=== PATIENT | male | born 1985 | race Caucasian/White ===

== ENCOUNTER 2016-06-24 02:49 | Day surgery (SDC) | payer OTHER ==
[2016-06-24] MEDS ORDERED: ONDANSETRON 4 MG/2 ML VIAL IVPUSH ONE (03:12)
[2016-06-24] MEDS ORDERED: SODIUM CHLORIDE 1,000 ML IV STA ×2 (03:12→04:25)
[2016-06-24] MEDS ORDERED: morphine CARPU-JECT 4 MG/1 ML DISP.SYRIN IVPUSH ONE (03:12)
--- NOTE | 2016-06-24 03:18 | PDOC ---
History of Present Illness - General Stated Complaint: STOMACH PAIN Time Seen by Provider: 06/24/16 02:52 History Source: Patient Exam Limitations: No Limitations - History of Present Illness Travel History: No Initial Comments: 06/24/16 03:14 30yo male patient presents to ED c/o abd pain. Patient state symptoms began around 1 am this morning, woke him up out of his sleep. Patient reports vomiting >3 times. Denies diarrhea and fever. He stated he was seen at [facility] this past Apr, and was told he needed his gall bladder removed but he never followed up. Patient denies any other complaints at this time. Timing/Duration: reports: getting worse Quality: reports: severe Abdominal Pain Onset Location: reports: epigastric Pain Radiation: reports: RUQ Activities at Onset: reports: sleep Treatment Prior to Arrive: worse with: analgesics, antacids, cold pack, heat, laxative, enema, other Aggravating Factors: improves with: None Alleviating Factors: improves with: None Past History - Travel Traveled outside of the country in the last 30 days: No Close contact w/someone who was outside of country & ill: No Abd/GI Specific PMHX - Complaint Specific PMHX Colitis: No Diverticulitis: No Gall Bladder Disease: Yes GERD: No Hepatitis: No Irritable Bowel Synd (IBS): No Pancreatitis: No GI Ulcer Disease: No Review of Systems - Review of Systems Able to Perform ROS?: Yes Is the patient limited Bolivian proficient: No Constitutional: No: Chills, Fever Respiratory: No: Cough, Shortness of Breath, Stridor, Wheezing Cardiac (ROS): No: Chest Pain, Lightheadedness, Palpitations, Syncope, Chest Tightness ABD/GI: Yes: Nausea, Vomiting, Other (Abdominal Pain). No: Diarrhea : No: Dysuria, Frequency, Hematuria, Pain Musculoskeletal: No: Back Pain Integumentary: No: Bruising, Erythema, Rash Neurological: No: Headache, Numbness, Seizure, Tremors, Weakness All Other Systems: Reviewed and Negative *Physical Exam - Physical Exam General Appearance: Yes: Nourished, Appropriately Dressed, Apparent Distress, Moderate Distress. No: Mild Distress, Severe Distress HEENT: positive: EOMI, DANETTE, Normal ENT Inspection, Normal Voice, Symmetrical, TMs Normal, Pharynx Normal. negative: Scleral Icterus (R), Scleral Icterus (L) Neck: positive: Trachea midline, Normal Thyroid, Supple. negative: Tender, Rigid Respiratory/Chest: positive: Lungs Clear, Normal Breath Sounds. negative: Respiratory Distress, Accessory Muscle Use, Labored Respiration, Rapid RR, Stridor, Wheezing Cardiovascular: positive: Regular Rhythm, Regular Rate. negative: Edema, JVD, Murmur Gastrointestinal/Abdominal: positive: Tender (Epigastric and RUQ Pain), Soft, Decreased BS, Guarding, Rebound, Tenderness. negative: Distended Musculoskeletal: positive: Normal Inspection. negative: CVA Tenderness Extremity: positive: Normal Capillary Refill, Normal Inspection, Normal Range of Motion Integumentary: positive: Normal Color, Dry, Warm. negative: Erythema, Jaundice , Cold, Clammy, Diaphoresis, Rash, Swelling Neurologic: positive: commissioner of officials II-XII NML intact, Fully Oriented, Alert, Normal Mood/ Affect, Normal Response, Motor Strength 5/5
[2016-06-24 03:45] LABS: BASOPHIL 0.7 % (0-2.0); EOSINOPHIL 1.8 % (0-4.5); MCH 30.1 pg (25.7-33.7); MCHC 34.6 g/dl (32.0-35.9); MEAN CELL VOLUME 87.1 fl (80-96); MEAN PLT VOLUME 9.1 fl (7.5-11.1); NEUTROPHILS 54.4 % (42.8-82.8); PLATELET COUNT 272 K/MM3 (134-434); RDW 12.3 % (11.9-15.9); WHITE BLOOD COUNT 9.8 K/mm3 (4.0-10.0)
[2016-06-24] MEDS ORDERED: HYDROmorphone HCL CARPU-JECT 1 MG/1 ML DISP.SYRIN IVPUSH ONE (03:58)
[2016-06-24] MEDS ORDERED: HYDROmorphone HCL CARPU-JECT 1 MG/1 ML DISP.SYRIN ONE (04:04)
[2016-06-24] MEDS ORDERED: PANTOPRAZOLE SODIUM 40 MG in SODIUM CHLORIDE 100 ML IVPB ONE (04:04)
[2016-06-24] MEDS ORDERED: PANTOPRAZOLE SODIUM 100 ML IVPB ONE (04:13)
[2016-06-24 05:37] LABS: ALBUMIN 4.1 g/dl (3.4-5.0); AMYLASE 78 U/L (25-115); ANION GAP 10 (8-16); CO2 31 mmol/L (21-32); GLUCOSE,RANDOM 120 mg/dL (74-106)
[2016-06-24 05:41] LABS: ALK PHOS 59 U/L (45-117); BILIRUBIN,TOTAL 0.4 mg/dL (0.2-1.0); CREATININE 1.1 mg/dL (0.7-1.3); SGOT/AST 17 U/L (15-37); SGPT/ALT 41 U/L (12-78); TOT PROT 7.5 g/dl (6.4-8.2)
[2016-06-24 05:43] LABS: BILIRUBIN,DIRECT < 0.1 mg/dL (0.0-0.2)
[2016-06-24 06:06] LABS: URINE APPEARANCE CLEAR; URINE BILIRUBIN NEGATIVE (NEGATIVE); URINE COLOR STRAW; URINE GLUCOSE (UA) NEGATIVE (NEGATIVE); URINE KETONE NEGATIVE (NEGATIVE); URINE LEUK ESTERASE NEGATIVE (NEGATIVE); URINE NITRITE NEGATIVE (NEGATIVE); URINE PROTEIN NEGATIVE (NEGATIVE); URINE UROBILINOGEN NEGATIVE E.U./dl (0.2-1.0)
--- NOTE | 2016-06-24 06:13 | PDOC ---
[id number] 100 06/24/16 03:21 06/24/16 03:21 06/24/16 03:21 06/24/16 03:21 06/24/16 03:21 ED Treatment Course - LABORATORY CBC & Chemistry Diagram: 06/25/16 06:00 06/25/16 06:00 - ADDITIONAL ORDERS Additional order review: Laboratory Results 06/24/16 03:16 Sodium 141 Potassium 3.9 Chloride 100 Carbon Dioxide 31 Anion Gap 10 BUN 20 H Creatinine 1.1 Random Glucose 120 H Calcium 9.0 Total Bilirubin 0.4 Direct Bilirubin < 0.1 AST 17 ALT 41 Alkaline Phosphatase 59 Total Protein 7.5 Albumin 4.1 Total Amylase 78 Lipase 414 H 06/24/16 03:16 RBC 5.08 MCV 87.1 MCHC 34.6 RDW 12.3 MPV 9.1 Neutrophils % 54.4 Lymphocytes % 35.6 Monocytes % 7.5 Eosinophils % 1.8 Basophils % 0.7 - Medications Given in the ED: ED Medications Discontinued Medications Generic Name Dose Route Start Last Admin Trade Name Isaíasq PRN Reason Stop Dose Admin Hydromorphone HCl 1 mg 06/24/16 03:58 06/24/16 04:12 Dilaudid Injection - IVPUSH 06/24/16 03:59 1 mg ONCE ONE Administration Sodium Chloride 1,000 mls @ 1,000 mls/hr 06/24/16 03:12 06/24/16 03:26 Normal Saline - IV 06/24/16 04:11 1,000 mls/hr ASDIR STA Administration Pantoprazole Sodium 40 mg/ 100 mls @ 200 mls/hr 06/24/16 04:04 06/24/16 04:16 Sodium Chloride IVPB 06/24/16 04:33 200 mls/hr ONCE ONE Administration Sodium Chloride 1,000 mls @ 1,000 mls/hr 06/24/16 04:25 06/24/16 04:32 Normal Saline - IV 06/24/16 05:24 1,000 mls/hr ASDIR STA Administration Morphine Sulfate 4 mg 06/24/16 03:12 06/24/16 03:26 Morphine Injection - IVPUSH 06/24/16 03:13 4 mg ONCE ONE Administration Ondansetron HCl 4 mg 06/24/16 03:12 06/24/16 03:26 Zofran Injection IVPUSH 06/24/16 03:13 4 mg ONCE ONE Administration Medical Decision Making - Medical Decision Making 06/24/16 06:13 agree with care from FLOORING SALES MANAGER Rajan *DC/Admit/Observation/Transfer Diagnosis at time of Disposition: Epigastric abdominal pain, Cholecystitis - Discharge Dispostion Disposition: HOME Condition at time of disposition: Stable - Prescriptions
[2016-06-24 06:15] LABS: URINE BLOOD 1+ (NEGATIVE)
[2016-06-24 06:29] LABS: URINE MUCUS RARE; URINE RBC 2 /hpf (0-3)
--- NOTE | 2016-06-24 07:18 | PDOC ---
ED Treatment Course - LABORATORY CBC & Chemistry Diagram: 06/24/16 03:16 06/24/16 03:16 - ADDITIONAL ORDERS Additional order review: Laboratory Results 06/24/16 06/24/16 05:00 03:16 Sodium 141 Potassium 3.9 Chloride 100 Carbon Dioxide 31 Anion Gap 10 BUN 20 H Creatinine 1.1 Random Glucose 120 H Calcium 9.0 Total Bilirubin 0.4 Direct Bilirubin < 0.1 AST 17 ALT 41 Alkaline Phosphatase 59 Total Protein 7.5 Albumin 4.1 Total Amylase 78 Lipase 414 H Urine Color Straw Urine Appearance Clear Urine pH 6.0 Ur Specific [place] 1.014 Urine Protein Negative Urine Glucose (UA) Negative Urine Ketones Negative Urine Blood 1+ H Urine Nitrite Negative Urine Bilirubin Negative Urine Urobilinogen Negative Ur Leukocyte Esterase Negative Urine RBC 2 Urine WBC None Urine Mucus Rare 06/24/16 03:16 RBC 5.08 MCV 87.1 MCHC 34.6 RDW 12.3 MPV 9.1 Neutrophils % 54.4 Lymphocytes % 35.6 Monocytes % 7.5 Eosinophils % 1.8 Basophils % 0.7 - Medications Given in the ED: ED Medications Discontinued Medications Generic Name Dose Route Start Last Admin Trade Name Freq PRN Reason Stop Dose Admin Hydromorphone HCl 1 mg 06/24/16 03:58 06/24/16 04:12 Dilaudid Injection - IVPUSH 06/24/16 03:59 1 mg ONCE ONE Administration Sodium Chloride 1,000 mls @ 1,000 mls/hr 06/24/16 03:12 06/24/16 03:26 Normal Saline - IV 06/24/16 04:11 1,000 mls/hr ASDIR STA Administration Pantoprazole Sodium 40 mg/ 100 mls @ 200 mls/hr 06/24/16 04:04 06/24/16 04:16 Sodium Chloride IVPB 06/24/16 04:33 200 mls/hr ONCE ONE Administration Sodium Chloride 1,000 mls @ 1,000 mls/hr 06/24/16 04:25 06/24/16 04:32 Normal Saline - IV 06/24/16 05:24 1,000 mls/hr ASDIR STA Administration Morphine Sulfate 4 mg 06/24/16 03:12 06/24/16 03:26 Morphine Injection - IVPUSH 06/24/16 03:13 4 mg ONCE ONE Administration Ondansetron HCl 4 mg 06/24/16 03:12 06/24/16 03:26 Zofran Injection IVPUSH 06/24/16 03:13 4 mg ONCE ONE Administration Progress Note - Progress Note Progress Note: I have received report from JUDITH Tolentino regarding this patient. Pt's initial chief complaint: epigastric pain with vomiting Pt's work up completed prior to sign out: labs, EKG Pt treatment given from prior staff: IV zofran, dilaudid, morphine, protonix, fluids Pt plan to be completed: Awaiting gallbladder ultrasound Dispo: Pending Medical Decision Making - Medical Decision Making A/P: 30 y/o afebrile male with hx of gallstones who woke up in the middle of the night with epigastric abdominal pain. Pt was initially assessed by JUDITH Tolentino. Labs unremarkable except for elevated lipase. Patient's pain is now improved. Awaiting gallbladder ultrasound. Gallbladder Ultrasound IMPRESSION: Cholelithiasis. Findings suggest cholecystitis. Spoke with Dr. Mcclelland and he will admit to med/surg Ordered IV ceftriaxone and flagyl. *DC/Admit/Observation/Transfer Diagnosis at time of Disposition: Epigastric abdominal pain, Cholecystitis - Discharge Dispostion Admit: Yes - Referrals Referrals: Avery Pope [Primary Care Provider] -
[2016-06-24] MEDS ORDERED: CEFTRIAXONE 1,000 MG in DEXTROSE 5%-WATER - 50 ML IVPB ONE (09:46)
[2016-06-24] MEDS ORDERED: METRONIDAZOLE 500 MG PREMIXED 100 ML IVPB ONE ×2 (09:46→10:01)
--- NOTE | 2016-06-24 09:57 | EKG ---
Test Reason : Blood Pressure : / mmHG Vent. Rate : 063 BPM Atrial Rate : 063 BPM P-R Int : 166 ms QRS Dur : 106 ms QT Int : 390 ms P-R-T Axes : 054 074 063 degrees QTc Int : 399 ms NORMAL SINUS RHYTHM NO PREVIOUS ECGS AVAILABLE Confirmed by ADDISON DOS SANTOS MD ([id number]) on 06/24/2016 9:56:27 AM Referred By: Confirmed By:ADDISON DOS SANTOS MD
[2016-06-24] MEDS ORDERED: CEFTRIAXONE 50 ML ONE (10:00)
[2016-06-24] MEDS ORDERED: ACETAMINOPHEN 325 MG TABLET (FP) PO PRN ×2 (10:25→17:10)
[2016-06-24] MEDS ORDERED: morphine CARPU-JECT 2 MG/1 ML DISP.SYRIN IVPUSH PRN ×2 (10:25→17:10)
[2016-06-24] MEDS ORDERED: ONDANSETRON 4 MG/2 ML VIAL IVPB PRN ×2 (10:25→17:30)
[2016-06-24] MEDS ORDERED: LEVOTHYROXINE NA 150 MCG TABLET PO SCH (10:30)
[2016-06-24] MEDS ORDERED: SODIUM CHLORIDE 1,000 ML IV SCH (10:30)
--- NOTE | 2016-06-24 10:32 | HP ---
PCP: Avery Pope CHIEF COMPLAINT: Abdominal pain HISTORY OF PRESENT ILLNESS: This is a 30-year-old man who presented to the ER complaining of abdominal pain. The pain was located in the epigastrium and awoke him from sleep at 1 am. He vomited partially digested food. He had eaten fried food around 9 pm last night. He denies fever, chills, hematemesis, heartburn, weight loss. He says he had a similar episode in March or April which resolved on its own. He subsequently had an abdominal US which showed gallstones. He was advised to avoid fried food. PAST MEDICAL HISTORY Cholelithiasis Hypothyroidism PAST SURGICAL HISTORY Denies Allergies No Known Allergies Allergy (Verified 06/24/16 03:24) HOME MEDICATIONS 3 Medication Instructions Recorded Levothyroxine [Synthroid -] 150 mcg PO DAILY 06/24/16 Social History: Smoking: Never smoked Alcohol: Denies Drugs: Denies Recent Travel: No Family History: Unremarkable REVIEW OF SYSTEMS CONSTITUTIONAL: Absent: fever, chills, diaphoresis, generalized weakness, malaise, loss of appetite, weight change HEENT: Absent: rhinorrhea, nasal congestion, throat pain, throat swelling, difficulty swallowing, mouth swelling, ear pain, eye pain, visual changes CARDIOVASCULAR: Absent: chest pain, syncope, palpitations, lightheadedness, peripheral edema RESPIRATORY: Absent: cough, shortness of breath, dyspnea with exertion, orthopnea, wheezing, stridor, hemoptysis GASTROINTESTINAL: Present: abdominal pain, nausea, vomiting. Absent: abdominal distension, diarrhea, constipation, melena, hematochezia GENITOURINARY: Absent: dysuria, frequency, urgency, hesitancy, hematuria, flank pain MUSCULOSKELETAL: Absent: myalgia, arthralgia, joint swelling, back pain, neck pain SKIN: Absent: rash, itching, pallor HEMATOLOGIC/IMMUNOLOGIC: Absent: easy bleeding, easy bruising, lymphadenopathy, frequent infections ENDOCRINE: Absent: unexplained weight gain, unexplained weight loss, heat intolerance, cold intolerance NEUROLOGIC: Absent: headache, focal weakness, paresthesias, dizziness, unsteady gait, seizure, mental status changes, bladder or bowel incontinence PSYCHIATRIC: Absent: anxiety, depression, suicidal or homicidal ideation, hallucinations. PHYSICAL EXAMINATION Vital Signs Period Temp Pulse Resp BP Sys/Arellano Pulse Ox Last 24 Hr 98.7 F 75 15 134/75 100 GENERAL: Awake, alert, and fully oriented, in no acute distress. HEAD: Normal with no signs of trauma. EYES: Pupils equal, round and reactive to light, extraocular movements intact, sclerae anicteric, conjunctivae clear. EARS, NOSE, THROAT: Ears normal, nares patent, oropharynx clear without exudates. Moist mucous membranes. NECK: Normal range of motion, supple without lymphadenopathy, JVD, or masses. LUNGS: Breath sounds equal, clear to auscultation bilaterally. No wheezes, and no crackles. No accessory muscle use. HEART: Regular rate and rhythm, normal S1 and S2 without murmur, rub or gallop. ABDOMEN: Soft, (+) RUQ tenderness, not distended, normoactive bowel sounds, no guarding, no rebound, no masses. No hepatomegaly or splenomegaly. MUSCULOSKELETAL: Normal range of motion at all joints. No bony deformities or tenderness. No CVA tenderness. UPPER EXTREMITIES: 2+ pulses, warm, well-perfused. No cyanosis. No clubbing. No peripheral edema. LOWER EXTREMITIES: 2+ pulses, warm, well-perfused. No calf tenderness. No peripheral edema. NEUROLOGICAL: Cranial nerves II-XII intact. Normal speech. Gait not observed. PSYCHIATRIC: Cooperative. Good eye contact. Appropriate mood and affect. SKIN: Warm, dry, normal turgor, no rashes or lesions noted, normal capillary refill. Laboratory Tests 06/24/16 06/24/16 06/24/16 03:16 03:16 05:00 WBC 9.8 RBC 5.08 Hgb 15.3 Hct 44.2 MCV 87.1 MCHC 34.6 RDW 12.3 Plt Count 272 MPV 9.1 Neutrophils % 54.4 Lymphocytes % 35.6 Monocytes % 7.5 Eosinophils % 1.8 Basophils % 0.7 Sodium 141 Potassium 3.9 Chloride 100 Carbon Dioxide 31 Anion Gap 10 BUN 20 H Creatinine 1.1 Random Glucose 120 H Calcium 9.0 Total Bilirubin 0.4 Direct Bilirubin < 0.1 AST 17 ALT 41 Alkaline Phosphatase 59 Total Protein 7.5 Albumin 4.1 Total Amylase 78 Lipase 414 H Urine Color Straw Urine Appearance Clear Urine pH 6.0 Ur Specific [place] 1.014 Urine Protein Negative Urine Glucose (UA) Negative Urine Ketones Negative Urine Blood 1+ H Urine Nitrite Negative Urine Bilirubin Negative Urine Urobilinogen Negative Ur Leukocyte Esterase Negative Urine RBC 2 Urine WBC None Urine Mucus Rare RUQ US: Fluid-filled gallbladder with multiple stones, wall thickening and edema. EKG: Sinus rhythm, rate 63. No ischemic changes. ASSESSMENT/PLAN: This is a 30-year-old man with a history of gallstones and hypothyroidism who comes to the ER today with acute onset of epigastric abdominal pain, nausea and vomiting after eating fried food. He is afebrile and WBC is normal. US is consistent with acute cholecystitis. 1. Acute cholecystitis - NPO - IV fluid - Rocephin, Flagyl - Morphine as needed for pain - Zofran as needed for nausea - Surgery consult for cholecystectomy 2. Hypothyroidism - Continue Synthroid Problem List - Problem (1) Hypothyroidism Code(s): E03.9 - HYPOTHYROIDISM, UNSPECIFIED (2) Cholecystitis Code(s): K81.9 - CHOLECYSTITIS, UNSPECIFIED (3) Epigastric abdominal pain Code(s): R10.13 - EPIGASTRIC PAIN Visit type - Emergency Visit Emergency Visit: Yes ED Registration Date: 06/24/16 Care time: The patient presented to the Emergency Department on the above date and was hospitalized for further evaluation of their emergent condition. - New Patient This patient is new to me today: Yes Date on this admission: 06/24/16 - Critical Care Critical Care patient: No
[2016-06-24 11:32] VITALS: BMI 26.3
--- NOTE | 2016-06-24 11:32 | CONSULT ---
Addendum entered and electronically signed by Prakash Tomas PA 06/24/16 16:48: PMHx: hypothyroid PSHx: denies Original Note: - Consultation REQUESTING PROVIDER: Dar Johnson MD - General Surgery CONSULT REQUEST: We have been asked to surgically evaluate this patient for symptomatic cholelithiasis PCP: Dm Mcclelland MD HPI: Called to jessie 30 yo male w/ PMHx noted below. Comes to [facility] ED with c/o abd pain that started around 1AM. The pain was located in the epigastrium. Last meal eaten was dinner (fried tortillas) around 9PM. States he felt a little nauseous and vomited. Had a similar episode back in March but never sought medical attention. Knows he has gallstones. Denies: fever, chills, CP, SOB, cough, diarrhea, constipation, melena, hematochezia, hematuria, flank pain or change in urine color. PMHx: PSHx: HOME MEDS: Synthroid 150 mcg PO daily Allergies: NKDA ROS: CONSTITUTIONAL: Absent: diaphoresis, generalized weakness, malaise, loss of appetite, weight change CARDIOVASCULAR: Absent: syncope, palpitations, irregular heart rate, lightheadedness, peripheral edema RESPIRATORY: Absent: dyspnea with exertion, wheezing, stridor, hemoptysis GASTROINTESTINAL:SEE ABOVE GENITOURINARY: Absent: dysuria, frequency, urgency, hesitancy, genital pain MUSCULOSKELETAL: Absent: myalgia, arthralgia, joint swelling, back pain, neck pain SKIN: Absent: rash, itching, pallor HEMATOLOGIC/IMMUNOLOGIC: Absent: easy bleeding, easy bruising, lymphadenopathy NEUROLOGIC: Absent: headache, focal weakness, paresthesias, dizziness, unsteady gait, seizure, mental status changes PSYCHIATRIC: Absent: anxiety, depression, suicidal or homicidal ideation, hallucinations. PE: GENERAL: Awake, alert, and fully oriented, in no acute distress. HEAD: Normal with no signs of trauma. EYES: PERRL, sclera anicteric, conjunctiva clear. NECK: Normal ROM, supple without lymphadenopathy, JVD, or masses. LUNGS: CTA b/l anteriorly HEART: RRR ABDOMEN: RUQ ttp. + Veliz's sign. BS x 4 MUSCULOSKELETAL: Normal ROM at all joints. No bony deformities or tenderness. No CVA tenderness. UE: 2+ pulses, warm, well-perfused. No cyanosis. Cap refill <2 seconds. No peripheral edema. LE: 2+ pulses, warm, well-perfused. No calf tenderness. No peripheral edema. NEUROLOGICAL: Normal speech, gait not observed. PSYCH: Cooperative. Good eye contact. Appropriate mood and affect. SKIN: Warm, dry, normal turgor, no rashes or lesions noted. Vital Signs Temperature 99.6 F 06/24/16 11:15 Pulse Rate 73 06/24/16 11:15 Respiratory Rate 18 06/24/16 11:15 Blood Pressure 134/83 06/24/16 11:15 O2 Sat by Pulse Oximetry (%) 99 06/24/16 11:15 CBC, BMP 06/24/16 03:16 06/24/16 03:16 Hepatic Panel Total Bilirubin 0.4 mg/dL (0.2-1.0) 06/24/16 03:16 Direct Bilirubin < 0.1 mg/dL (0.0-0.2) 06/24/16 03:16 AST 17 U/L (15-37) 06/24/16 03:16 ALT 41 U/L (12-78) 06/24/16 03:16 Alkaline Phosphatase 59 U/L (45-117) 06/24/16 03:16 Albumin 4.1 g/dl (3.4-5.0) 06/24/16 03:16 Problem List - Problems (1) Cholecystitis Assessment/Plan: Going to OR today for lap nicole Consent obtained and in his paper chart NPO / IVF GI / DVT PPX Medical optimization HIDA canceled. Above plan discussed with Dr. Johnson and agrees Code(s): K81.9 - CHOLECYSTITIS, UNSPECIFIED Visit type - Case Type Case Type: ED Admission - Emergency Emergency Visit: Yes ED Registration Date: 06/24/16 Care time: The patient presented to the Emergency Department on the above date and was hospitalized for further evaluation of their emergent condition. - New patient This patient is new to me today: Yes Date on this admission: 06/24/16
[2016-06-24 13:30] LABS: INR 1.05 (0.82-1.09); PROTHROMBIN TIME (PATIENT) 11.6 SEC (9.98-11.88)
--- NOTE | 2016-06-24 15:49 | OP ---
Operative Note - Note: Operative Date: 06/24/16 Pre-Operative Diagnosis: acute cholecystitis, cholelithiasis Operation: laparoscopic cholecystectomy Post-Operative Diagnosis: Same as Pre-op Surgeon: Dar Johnson Speech Therapy Teacher: Gertrudis Duran Anesthesiologist/HOME THERAPY TEACHER: Clarisa Tomas Anesthesia: General Specimens Removed: gallbladder Estimated Blood Loss (mls): 20 Fluid Volume Replaced (mls): 1,500 Operative Report Dictated: Yes
--- NOTE | 2016-06-24 15:52 | SURG ---
Surgery [facility]wood Sawyer Note Hardwood Sawyer: Gertrudis Duran PA-C Date of Service: 06/24/16 Diagnosis: acute cholecystitis, cholelithiasis Procedure: laparoscopic cholecystectomy I was present for the entirety of the operative procedure. For further detail, please refer to operative report. Visit type - Case Type Case Type: ED Admission - New patient This patient is new to me today: Yes Date on this admission: 06/24/16
[2016-06-24] MEDS ORDERED: oxyCODONE HCL 5 MG TABLET PO PRN ×2 (15:56)
[2016-06-24] MEDS ORDERED: LACTATED RINGERS SOLUTION 1,000 ML IV SCH ×3 (16:00→17:15)
[2016-06-24] MEDS ORDERED: PROMETHAZINE HCL 25 MG/1 ML VIAL IVPUSH PRN (17:28)
[2016-06-24] MEDS ORDERED: ONDANSETRON 4 MG/2 ML VIAL IVPUSH PRN (17:30)
[2016-06-24] MEDS ORDERED: METRONIDAZOLE 500 MG PREMIXED 100 ML IVPB SCH (18:00)
[2016-06-25] MEDS ORDERED: LEVOTHYROXINE NA 75 MCG TABLET (FP) PO SCH (07:00)
[2016-06-25 08:21] LABS: MCHC 34.7 g/dl (32.0-35.9); MEAN CELL VOLUME 86.5 fl (80-96); MEAN PLT VOLUME 9.4 fl (7.5-11.1); PLATELET COUNT 247 K/MM3 (134-434); RDW 12.6 % (11.9-15.9); WHITE BLOOD COUNT 12.1 K/mm3 (4.0-10.0)
--- NOTE | 2016-06-25 08:44 | DS ---
Physical Exam: SUBJECTIVE: Patient seen and examined.; He has pain when he moves, however tolerable, he is tolerating food, no vomiting no nausea. No flatulence, no BM. Events: - tmax 101.4, resolved with tylenol OBJECTIVE: Vital Signs Period Temp Pulse Resp BP Sys/Arellano Pulse Ox Last 24 Hr 98.2 F-101.4 F 71-92 16-20 98-134/60-91 94-100 PE Neuro: alert, awake, cn 2-12intact Pulm: CTAB CV: s1 s2 rrr no mrg Abd: x4 port incision sites CDI with steri strips, mild distension, + BS, soft Ext: warm, no le edema Laboratory Results - last 24 hr 06/24/16 06/24/16 06/24/16 12:45 12:45 14:33 WBC RBC Hgb Hct MCV MCHC RDW Plt Count MPV INR 1.05 Blood Type B POSITIVE B POSITIVE Antibody Screen Negative 06/25/16 06:00 WBC 12.1 H RBC 4.55 Hgb 13.7 D Hct 39.4 MCV 86.5 MCHC 34.7 RDW 12.6 Plt Count 247 MPV 9.4 INR Blood Type Antibody Screen HOSPITAL COURSE: Date of Admission:06/24/16 Date of Discharge: 06/25/16 Minutes to complete discharge: 35 Discharge Summary Reason For Visit: CHOLECYSTITIS Current Active Problems Cholecystitis (Acute) Epigastric abdominal pain (Acute) Hypothyroidism (Chronic) Hospital Course: Initial Hospital Course: 30-year-old male admitted with abdominal pain. The pain was located in the epigastrium and awoke him from sleep at 1 am. He vomited partially digested food. He had eaten fried food around 9 pm last night. He had a similar episode in March or April which resolved on its own. He subsequently had an abdominal US which showed gallstones. He was advised to avoid fried food. Imaging: RUQ US: Fluid-filled gallbladder with multiple stones, wall thickening and edema. EKG: Sinus rhythm, rate 63. No ischemic changes. Subsequent Hospital Course/Progress Note/Discharge Summary by P 1. Acute cholecystitis - s/p Laparoscopic cholecystectomy 06/24 - Home with levaquin/flagyl x5 day course - Follow up w/ surgery next week 2. Hypothyroidism - Continue Synthroid Dispo: - Home with surgery follow up and abx - Pt aware and agrees to above plan Condition: Stable - Instructions Diet, Activity, Other Instructions: Please return to the ED for any new, persistent, or worsening symptoms. Follow up with your PCP in 1 week Next week make appt to see Surgeon Dr. Johnson for follow up surgical visit ( information enclosed) Take Pain medication as needed Referrals: Dar Johnson MD [Staff Physician] - 1 Week Avery Pope [Primary Care Provider] - Disposition: HOME - Home Medications Comprehensive Discharge Medication List: Ambulatory Orders Levothyroxine [Synthroid -] 150 mcg PO DAILY 06/24/16 Levofloxacin [Levaquin -] 500 mg PO DAILY #4 tablet 06/25/16 Metronidazole [Flagyl -] 500 mg PO Q8H #14 tablet 06/25/16 Oxycodone HCl/Acetaminophen [Percocet 5-325 mg Tablet] 1 tab PO Q6H #20 tablet MDD 4 06/25/16 This patient is new to me today: Yes Date on this admission: 06/25/16 Emergency Visit: Yes Care time: The patient presented to the Emergency Department on the above date and was hospitalized for further evaluation of their emergent condition. Critical Care patient: No - Discharge Referral Referred to [facility] Med P.C.: No
[2016-06-25 08:47] LABS: CALCIUM 8.3 mg/dL (8.5-10.1); CREATININE 0.9 mg/dL (0.7-1.3)
[2016-06-25] MEDS ORDERED: LEVOFLOXACIN 500 MG TABLET (FP) PO ONE (09:00)
[2016-06-25] MEDS ORDERED: metroNIDAZOLE 250 MG TABLET PO ONE (09:00)
--- NOTE | 2016-06-25 09:50 | PN ---
Progress Note (short form) - Note Progress Note: Surgery- Dr. Johnson Patient seen and examined with Dr. Johnson. Patient is feeling well today, denies pain. He is tolerating his diet. Last Vital Signs Temp Pulse Resp BP Pulse Ox 98.6 F 81 18 109/61 97 06/25/16 07:44 06/25/16 07:44 06/25/16 07:44 06/25/16 07:44 06/24/16 21:00 CBC, BMP 06/25/16 06:00 06/25/16 06:00 Exam: Gen: NAD, pleasant and cooperative Abd: incisions clean/dry/intact, abd soft, nondistended, minimal tenderness Problem List - Problems (1) Cholecystitis Assessment/Plan: POD#1 s/p lap nicole Patient doing well, pain controlled, tolerating diet May be discharged home, instructed to follow-up with Dr. Johnson on 4/4 or 4/5 Percocet for pain May shower Instructed not to do any heavy lifting until follow-up with Dr. Johnson Code(s): K81.9 - CHOLECYSTITIS, UNSPECIFIED
[2016-06-25] MEDS ORDERED: CEFTRIAXONE 50 ML IVPB SCH (10:00)
--- NOTE | 2016-06-25 12:42 | OP ---
DATE OF OPERATION: 06/24/2016 PREOPERATIVE DIAGNOSIS: Acute cholecystitis, cholelithiasis. POSTOPERATIVE DIAGNOSIS: Acute cholecystitis, cholelithiasis. PROCEDURE: Laparoscopic cholecystectomy. SURGEON: Dar Johnson MD POINT OF CARE TECHNICIAN: Gertrudis Duran PA-C ANESTHESIA: General. OPERATIVE FINDINGS: There was acute cholecystitis and cholelithiasis. The rest of the findings were unremarkable. DESCRIPTION OF PROCEDURE: The patient was placed on the operating table in supine position, and after the induction of general anesthesia, the patients abdomen was prepped with ChloraPrep and draped in sterile fashion. A time-out was taken, and pneumoperitoneum was established above the umbilicus using a Veress needle. Once 15 mmHg pressure was achieved, a 5-mm port was placed, and laparoscopy carried out. Additional lateral 5-mm ports and a subxiphoid 12-mm port were placed, and then, the gallbladder was placed on cephalad and lateral traction. Because of the tense nature of the gallbladder and marked edema, the gallbladder was decompressed using a needle and suction. Again, the gallbladder was placed on cephalad and lateral traction, and dissection was begun in the triangle of Calot where the peritoneum was opened medially and laterally using electrocautery. The cystic duct was identified coursing distally to the common duct, and it was dissected proximally and distally for length using blunt dissection. The artery was similarly identified, however, lied medial to the cystic duct. It, too, was dissected proximally and distally for length. A critical view of safety was taken, and then the cystic duct and artery were divided using the EndoShears after being clipped twice proximally and twice distally with large 10-mm hemoclips. Next, the gallbladder was removed from the liver bed using electrocautery. Prior to removal from the edge of the liver, hemostasis was checked for and noted to be good. The gallbladder was then removed from the edge of the liver, placed in an EndoCatch, and brought out through the subxiphoid port. Pneumoperitoneum was reestablished, and copious irrigation carried out with normal saline until the return was clear. At this point, some omentum was placed into the gallbladder fossa, and then all ports removed under laparoscopic vision without evidence of bleeding from the port sites. The pneumoperitoneum was evacuated. The port sites were infiltrated with 0.5% Marcaine, and the skin incisions closed with 4-0 Biosyn. The fascial defect at the subxiphoid port was closed with a single [id number] 0 Vicryl suture. Steri-Strips and Band-Aid dressings were placed. The procedure was terminated at this point. The patient was roused from general anesthesia and transferred to the post-anesthesia care unit in stable condition, awake and alert. ESTIMATED BLOOD LOSS: 20 mL. REPLACEMENTS: Crystalloid. DRAINS: None. SPECIMENS: Gallbladder and contents to Pathology. I, Dar Johnson, was physically present in the operating room from the time the patient was placed on the operating table until he was transferred to the post-anesthesia care unit in my accompaniment. MD KAREN Ryan/[id number]
[2016-06-25 13:10] VITALS: BP 121/80; PULSE 83; TEMP 98.9
--- NOTE | 2016-06-28 14:02 | PATH ---
Surgical Pathology Report Patient Name: ANGE POON [facility]. Rec. #: [id number] /Age/Gender: 1985 (Age: 30) / M Account: [id number] Location: AMBULATORY SURG Taken: 06/24/2016 Received: 06/27/2016 Reported: 06/28/2016 Physicians: Dar Johnson MD Specimen(s) Received GALLBLADDER Clinical History Cholecystitis Final Diagnosis GALLBLADDER, CHOLECYSTECTOMY: CHRONIC AND NECROTIZING CHOLECYSTITIS AND CHOLELITHIASIS. BENIGN PERICYSTIC LYMPH NODE PRESENT. Electronically Signed Jax Hyatt M.D. Gross Description Received in formalin, labeled "gallbladder," is a 8.0 x 3.0 x 2.6 cm. gallbladder with a 0.2 cm. in length portion of cystic duct attached. There is a 0.7 x 0.5 x 0.2 cm garcias brown periductal lymph node present. The outer surface is garcias prescott and varies from smooth to shaggy. The lumen contains green, tenacious bile as well as multiple yellow-brown, irregular to fragmented choleliths ranging from 0.1-0.8 cm in greatest dimension. The mucosa is green and focally eroded. The wall of the gallbladder averages 0.[address] [employer] sections are submitted in one cassette. 06/27/2016 [facility]06/27/2016
== END 2016-06-25 12:36 | disposition home or self-care (01) ==
LOC: JER 02:49 → JERBED 09:37 → UNDOADMIN 09:37 → JASUSAT 10:25 → SUATTDRO 10:25 → JERBED 12:01 → J8W 12:01 → JASUSAT 06-25 12:36
PROVIDERS: ATTEND Nurse Practitioner Acute Care
PROC: 0FT44ZZ Resection of Gallbladder, Percutaneous Endoscopic Approach (ICD-10-PCS; principal; 2016-06-24 13:30)
DX: K80.00 Calculus of gallbladder with acute cholecystitis without obstruction (principal); E03.9 Hypothyroidism, unspecified
CPT/HCPCS: 36415; 76705-TC; 80048; 80076; 81003; 81015; 82150; 83690; 85025; 85027; 85610; 86850; 86900; 86901; 88304-TC; 93005; 93010; 94760; 99285-25